=== PATIENT | female | born 1990 ===

== ENCOUNTER 2022-02-21 08:26 | Emergency (ER) | payer SELFPAY ==
[2022-02-21] MEDS ORDERED: KETOROLAC 10 MG TAB PO ONE (12:29)
[2022-02-21] MEDS ORDERED: ACETAMINOPHEN W/CODEINE 300-30 MG TAB PO ONE (12:29)
--- NOTE | 2022-02-21 13:49 | XRay Report ---
LEFT WRIST 4 VIEWS INDICATION / CLINICAL INFORMATION: fall, pain COMPARISON: None available. FINDINGS: BONES / JOINT(S): No acute fracture or subluxation. No significant arthritis. SOFT TISSUES: No significant abnormality. ADDITIONAL FINDINGS: None. IMPRESSION: No acute findings. Signer Name: Alton Nails MD Signed: 02/21/2022 1:45 PM Workstation Name: [facility]
--- NOTE | 2022-02-21 13:57 | Emergency Department Report ---
ED Upper Extremity Inj HPI - General Chief Complaint: Extremity Injury, Upper Stated Complaint: LEFT WRIST PAIN Time Seen by Provider: 02/21/22 12:22 Source: patient Mode of arrival: Ambulatory Limitations: Language Barrier - History of Present Illness Initial Comments: 31-year-old female with a past medical history of diabetes presents to the emergency department for evaluation of 2 to 3-week history of left wrist pain. She states that she fell 2 to 3 weeks ago and has had increasing pain since then. She states that pain is worse when she moves her hand around. MD Complaint: Injury to:: left, wrist -: Gradual, week(s) (2-3) Other Extremity Injury: Wrist: Left Other Injuries: none Severity scale (0 -10): 10 Worsens With: movement of extremity Context: fall Associated Symptoms: denies other symptoms - Related Data Previous Rx's Medication Instructions Recorded Last Taken Type Naproxen [Naprosyn] 500 mg PO BID #14 tab 02/21/22 Unknown Rx Allergies Allergy/AdvReac Type Severity Reaction Status Date / Time No Known Allergies Allergy Unverified 02/21/22 08:42 ED Review of Systems ROS: Stated complaint: LEFT WRIST PAIN Other details as noted in HPI Comment: All other systems reviewed and negative Constitutional: denies: fever Respiratory: denies: shortness of breath Cardiovascular: denies: chest pain Gastrointestinal: denies: abdominal pain Musculoskeletal: denies: back pain Neurological: denies: headache, weakness ED Past Medical Hx - Medications Home Medications: Home Medications Medication Instructions Recorded Confirmed Last Taken Type Naproxen [Naprosyn] 500 mg PO BID #14 tab 02/21/22 Unknown Rx ED Physical Exam - General Limitations: Language Barrier General appearance: alert, in no apparent distress - Head Head exam: Present: atraumatic, normocephalic - Eye Eye exam: Present: normal appearance. Absent: conjunctival injection - Neck Neck exam: Present: normal inspection. Absent: tenderness - Respiratory Respiratory exam: Absent: respiratory distress - Cardiovascular Cardiovascular Exam: Present: regular rate - GI/Abdominal GI/Abdominal exam: Absent: distended - Expanded Upper Extremity Exam Left General: Present: normal inspection Forearm Wrist exam: Present: tenderness, swelling. Absent: full ROM, abrasion, ecchymosis, deformity, dislocation, erythema, tenderness over anatomical snuff box Vascular: Present: normal capillary refill. Absent: vascular compromise, Pallo - Back Exam Back exam: Present: normal inspection. Absent: CVA tenderness (R), CVA tenderness (L) - Neurological Exam Neurological exam: Present: alert, oriented X3 - Psychiatric Psychiatric exam: Present: normal affect, normal mood - Skin Skin exam: Present: warm, dry, intact, normal color ED Course Vital Signs 02/21/22 02/21/22 08:44 14:16 Temperature 98.1 F 97.8 F Pulse Rate 95 H 66 Respiratory 18 16 Rate Blood Pressure 118/82 126/66 [Right] O2 Sat by Pulse 96 99 Oximetry - Orthopedic Splinting/Casting Injury #1 Side: left Upper Extremity Injury Location: wrist Upper Extremity Immobilizer: wrist splint (Velcro) Additional Comments: CMS intact after application. Patient tolerated well. ED Medical Decision Making - Radiology Data Radiology results: report reviewed, image reviewed Left wrist x-ray: FINDINGS: BONES / JOINT(S): No acute fracture or subluxation. No significant arthritis. SOFT TISSUES: No significant abnormality. ADDITIONAL FINDINGS: None. IMPRESSION: No acute findings. - Medical Decision Making 31-year-old female with a past medical history of diabetes presents to the emergency department for evaluation of 2 to 3-week history of left wrist pain. She states that she fell 2 to 3 weeks ago and has had increasing pain since then. She states that pain is worse when she moves her hand around. Left wrist x-ray without any acute abnormalities noted. Patient states that she still has pain with movement of the hand. She was placed in Velcro wrist splint for comfort and discharged home with prescription for naproxen to take twice a day for 7 days. She is advised to follow-up with her primary care provider or orthopedics if no improvement or worsening symptoms. She verbalized understanding of and agreement with plan of care. Critical care attestation.: If time is entered above; I have spent that time in minutes in the direct care of this critically ill patient, excluding procedure time. ED Disposition Clinical Impression: Left wrist pain Disposition: HOME / SELF CARE / HOMELESS Is pt being admited?: No Does the pt Need Aspirin: No Condition: Stable Instructions: How to Use Cold Therapy, [id number], Musculoskeletal Pain, Wrist Pain, Adult, [id number] Additional Instructions: Take medications as prescribed. Follow-up with primary care provider or orthopedics if no improvement or worsening symptoms. Prescriptions: Naproxen [Naprosyn] 500 mg PO BID #14 tab Referrals: BLADIMIR YEUNG MD [Primary Care Provider] - 3-5 Days NOEMI RUSSELL MD [Staff Physician] - 3-5 Days Time of Disposition: 13:56 Print Language: TAMAZIGHT
[2022-02-21 14:17] VITALS: BP 126/66
== END 2022-02-21 14:16 | disposition home or self-care (01) ==
LOC: ED 08:26
DX: M25.512 Pain in left shoulder (principal)
CPT/HCPCS: 99283